=== PATIENT | male | born 1985 | race Two or more races ===

== ENCOUNTER 2018-09-06 17:11 | Emergency (ER) | payer OTHER ==
[2018-09-06 17:24] VITALS: BP 155/99
--- NOTE | 2018-09-06 18:21 | XRAY Report ---
Reason: Trauma Procedure Date: 09/06/2018 Accession Number: [id number] / [id number] Procedure: XR - Hand 3 View LT CPT Code: FULL RESULT: EXAM: LEFT HAND RADIOGRAPHY EXAM DATE: 09/06/2018 05:35 PM. CLINICAL HISTORY: Trauma. Injury to left thumb playing volleyball. COMPARISON: None. TECHNIQUE: 3 views. FINDINGS: Bones: Normal. No fractures or bone lesions. Joints: Normal. No subluxations. Soft Tissues: Normal. No soft tissue swelling. IMPRESSION: Normal hand radiography. [facility]
[2018-09-06] MEDS ORDERED: IBUPROFEN 400 MG TABLET PO STA (18:45)
--- NOTE | 2018-09-06 18:48 | ED Physician Documentation ---
History of Present Illness - Stated complaint Stated Complaint: LT THUMB VS VOLLEYBALL - Chief complaint Chief Complaint: Ext Problem - Additonal information Additional information: hx from pt 33 y/o male was playing chelsy ball earlier today (sounds like a hand ball game with a fast moving ball) he is not sure exactly what injury he sustained but after the game he developed pain to radial aspect 1st MC L non dom hand Review of Systems Musculoskeletal: reports: Extremity pain PD PAST MEDICAL HISTORY - Present Medications Home Medications: Ambulatory Orders Medication Instructions Recorded Confirmed No Known Home Medications 09/06/18 09/06/18 - Allergies Allergies/Adverse Reactions: Allergies Allergy/AdvReac Type Severity Reaction Status Date / Time No Known Drug Allergies Allergy Verified 09/06/18 17:24 PD ED PE NORMAL - Vitals Vital signs reviewed: Yes - Extremities Extremities: Other (L hand TTP radial aspect 1st MC and slight weakness to pinch and pain with trinity but no laxity, MSV intact, slight swelling and a mild echymosis, MSV intact) Results - Vitals Vitals: Vital Signs - 24 hr 09/06/18 17:22 Temperature 36.5 C Heart Rate 87 Respiratory 18 Rate Blood Pressure 155/99 H O2 Saturation 98 Oxygen O2 Source Room air - Rads (name of study) hand Radiology: See rad report (neg) Departure - Departure Disposition: 01 Home, Self Care Clinical Impression: Thumb tendonitis Condition: Good Comments: Wear the splint for support Ice for 20 minutes at a time Motrin 400 mg every 8 hr with food as needed for pain Follow up with your PMD if not better in a week Return if worse
== END 2018-09-06 18:59 | disposition home or self-care (01) ==
LOC: ED 17:11
DX: M77.9 Enthesopathy, unspecified (principal); M79.645 Pain in left finger(s); Y93.68 Activity, volleyball (beach) (court)
CPT/HCPCS: 73130; 99282; 99283; A9270

== ENCOUNTER 2021-03-25 09:53 | Outpatient (CLI) | payer OTHER ==
--- NOTE | 2021-03-25 10:51 | SLEEP CARE CONSULTATION ---
Information from patient questionnaire entered by Gabriela Lainez. I have reviewed and concur with the information entered by Gabriela Lainez. This document represents the service I personally performed and the decisions made by me, Kat Vitale ARNP. History of Present Illness Service Date and Time: 03/25/2021 0953 Reason for Visit: New patient Chief Complaint: reports: Unrefreshed sleep, Snoring, Observed pauses in breathing, Fatigue. denies: Insomnia, Excessive daytime sleepiness, Frequent awakenings at night, Other Date of Onset: has always been this way, normal for him Usual bedtime: 9 pm Time it takes to fall asleep: 30 minutes Snores at night: Yes Observed to quit breathing while asleep: Yes Sleeps alone due to snoring: No Number of times waking at night: 1-2 Reasons for waking at night: reports: Snoring, Other (unknown reason) Toss, Turn, or Twitch while sleeping: Yes Recalls having dreams: No Usually gets out of bed at: 5 am Feels refreshed in the morning: No Morning headache: No Sleepy or fatigued during the day: Yes Ever fallen asleep while driving: No Takes day naps: No Dreams during day naps: No Prior sleep studies: No Additional HPI information: I had the pleasure of seeing JODY HAN today regarding the possibility of him having a sleep disorder. His current complaints are fatigue, observed pauses in breathing, snoring and unrefreshed sleep. He states his father has sleep apnea and his son was diagnosed last year with sleep apnea but has not started any treatment yet. His has told him that he has pauses in breathing and he has loud snoring. His still sleeps in same bed. He states he used to have some sleep paralysis when he was younger but has not had it for a long time and has had none in the last 6 months. He also has some issues with restless sensations in his legs at night. His has told him that he continues to move his feet and legs during the night after he is gone to sleep. 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 Patient is and lives in [place]. Have you smoked in the past 12 months: No Cigarettes per day (20/pack): 20 Years of smokin Quit date: 2019 Smoking Pack Years: 2.0 Alcohol use: Yes Alcohol amount and frequency: 2 drinks a week Caffeine use: Yes Caffeine amount and frequency: 16 oz daily Family History Family history of sleep disordered breathing: Yes Family Hx Sleep Apnea: Father: Snoring (son), Sleep apnea - Untreated, Other: Snoring Allergies and Home Medications Drug allergies reviewed: Yes (NKDA) Home medication list reviewed: Yes (OTC Claritin and Flonase for seasonal allergies) Review of Systems Weight gain over past 5 years: 15 Cardiovascular: denies: high blood pressure Respiratory: denies: shortness of breath Gastrointestinal: denies: heartburn, difficulty swallowing Neurological: denies: headaches Ear/Nose/Throat: reports: wisdom teeth removed. denies: tonsillectomy Immunologic: reports: allergies to food or environment Physical Exam Blood Pressure: 132/79 Cuff size: wrist Heart Rate: 84 O2 Saturation: 99 Height: 5 ft 9.5 in Weight: 176 lb Body Mass Index: 25.6 BMI Classification: Overweight Neck circumference: 15.75 (inches) Nostrils: patent to airflow Mouth and throat: narrow oropharynx Soft palate: long Hard palate: normal Uvula: normal Uvula visualization: 50% Mallampati Class II Tongue: enlarged in size with teeth hand on lateral edges Tonsils: small Neck: normal w/o lymphadenopathy or thyromegaly Heart: regular rate and rhythm Lungs: clear bilaterally Impression and Plan 1. Suspected Obstructive Sleep Apnea-Hypopnea Syndrome, as suggested by a history of loud and irregular snoring, observed cessation of breath while asleep, unrefreshed sleep, and excessive daytime sleepiness. Narrow oropharynx and obesity are common predisposing factors for obstructive sleep apnea-hypopnea syndrome. I recommend proceeding to polysomnography to confirm the diagnosis and to assess severity. If the patient has significant sleep disordered breathing, a manual CPAP titration study will also be performed to find the optimal treatment pressure. I informed the patient of what the sleep studies involve and after some discussion, obtained agreement to proceed. The pathophysiology of obstructive sleep apnea-hypopnea syndrome was discussed with the patient and health risks of cardiovascular and cerebrovascular disease if not treated. AASM brochure for obstructive sleep apnea-hypopnea syndrome given and reviewed. Risks of drowsy driving discussed in detail and patient advised to avoid long distance driving and to assembler for puller over machine at the first sign of drowsiness. Patient agreed to plan. * Schedule polysomnography +- manual CPAP titration study and return in 1-2 weeks after the study to discuss result and initiate therapy. * Avoid long distance driving or driving when feeling sleepy. * Avoid alcohol, sedative and muscle relaxant around bedtime. * Attempt to lose weight. * Review instructions provided by trained office staff on how to prepare for the sleep study. * Return for follow-up after sleep study completed. Counseling Topics: Weight loss health impact Visit Type: In Office Time Spent with Patient (minutes): 30 Provider Statement: I spent 100% of the Face to Face Visit with the patient with greater than 50% spent counseling the patient and coordination of care.
[2021-03-25 10:52] VITALS: BP 132/79
== END 2021-03-25 09:54 | disposition home or self-care (01) ==
LOC: SC 09:53
PROVIDERS: ATTEND Nurse Practitioner Family
DX: R06.83 Snoring (principal); G47.10 Hypersomnia, unspecified; G47.8 Other sleep disorders; E66.3 Overweight; Z68.25 Body mass index [BMI] 25.0-25.9, adult
CPT/HCPCS: 99203; 99212

== ENCOUNTER 2021-03-28 12:14 | Outpatient (CLI) | payer OTHER | END 2021-03-28 12:15 | disposition home or self-care (01) | LOC: SC 12:14 | PROVIDERS: ATTEND Nurse Practitioner Family | DX: R06.83 Snoring (principal); R06.81 Apnea, not elsewhere classified; G47.8 Other sleep disorders; R53.83 Other fatigue; R09.02 Hypoxemia; E66.3 Overweight; Z68.26 Body mass index [BMI] 26.0-26.9, adult | CPT/HCPCS: 95806 ==

== ENCOUNTER 2021-04-03 15:53 | Outpatient (CLI) | payer OTHER ==
--- NOTE | 2021-04-03 16:29 | SLEEP CARE CONSULTATION ---
Information from patient questionnaire entered by Madai Teague. I have reviewed and concur with the information entered by Madai Teague. This document represents the service I personally performed and the decisions made by , Kat Vitale ARNP. History of Present Illness Service Date and Time: 04/03/2021 1553 Initial [place] Sleepiness Scale score: 8 (in 2020) Current [place] Sleepiness Scale score: 8 Additional HPI information: JODY HAN returns for follow up and results of the recently performed home sleep study. The patient was informed of the following findings: Patient had no significant sleep disordered breathing with an average AHI of 2.9 and a mame oxygen saturation of 86%. I explained the pathophysiology behind obstructive sleep apnea. Patient does not have sleep apnea and was advised how weight gain could increase the risk of developing sleep apnea in the future. I strongly encouraged the patient to lose weight. Patient has moderate snoring. Snoring can be reduced by weight loss. Weight loss is best achieved with diet consult. Patient instructed to contact PCP for referral. Snoring can also be treated with an oral appliance from a dentist. Advised to check insurance coverage. In addition, an ENT evaluation can be do to see if other treatment is indicated. Patient counseled not drink alcohol less than 4 hours before bedtime as it can increase snoring and apnea. Patient was cautioned about risks of drowsy driving until sleepiness symptoms resolve. Sleep Study - Results Type of Sleep Study: Home sleep study Prior sleep studies: No Polysomnography/Home Sleep Study results: The quality of the study is good. The length of the study is adequate (> 240 minutes). Please also see the tabulated and graphic data. 1. No significant sleep disordered breathing, with an AHI of 2.9/hr and mame SaO2 of 86%. During the study, the patient had 15 apneas (15 obstructive, 0 central, 0 mixed) and 11 hypopneas. The longest episode lasted 53.5 seconds. The few respiratory events occurred only during supine sleep (supine AHI was 4.1 and non-supine, 0.90). 2. Hypoxemia (ICD-10 R09.02), minimal, with the lowest oxygen saturation of 86 % and 0.5 minutes with SaO2 under 90%. Baseline oxygen saturation was normal (Average oxygen saturation was 95%). Allergies and Home Medications Home medication list reviewed: Yes (no changes) Review of Systems Review of systems same as previous: Yes (no changes) Physical Exam Heart Rate: 98 O2 Saturation: 97 Height: 5 ft 9.5 in Weight: 183 lb Body Mass Index: 26.6 BMI Classification: Overweight Impression and Plan 1. Suspected Obstructive Sleep Apnea-Hypopnea Syndrome, as suggested by a history of loud and irregular snoring, observed cessation of breath while asleep, unrefreshed sleep, and excessive daytime sleepiness. Patient home study not showing significant sleep apnea but supine AHI 4.1. Patient felt he did not rest very well that night and would like to repeat study in lab to verify if he does or does not have sleep apnea. He continues to have symptoms as listed above which could indicate obstructive sleep apnea. I recommend proceeding to in lab polysomnography to confirm the diagnosis and to assess severity. The pathophysiology of obstructive sleep apnea-hypopnea syndrome was discussed with the patient and health risks of cardiovascular and cerebrovascular disease if not treated. Risks of drowsy driving discussed in detail and patient advised to avoid long distance driving and to lumber puller at the first sign of drowsiness. Patient agreed to plan. * Schedule polysomnography +- manual CPAP titration study and return in 1-2 weeks after the study to discuss result and initiate therapy. * Avoid long distance driving or driving when feeling sleepy. * Avoid alcohol, sedative and muscle relaxant around bedtime. * Attempt to lose weight. * Review instructions provided by trained office staff on how to prepare for the sleep study. Counseling Topics: Weight loss health impact Visit Type: In Office Time Spent with Patient (minutes): 13 Provider Statement: I spent 100% of the Face to Face Visit with the patient with greater than 50% spent counseling the patient and coordination of care.
== END 2021-04-03 15:54 | disposition home or self-care (01) ==
LOC: SC 15:53
PROVIDERS: ATTEND Nurse Practitioner Family
DX: G47.33 Obstructive sleep apnea (adult) (pediatric) (principal); E66.3 Overweight; Z68.26 Body mass index [BMI] 26.0-26.9, adult
CPT/HCPCS: 99212